=== PATIENT | male | born 1945 | race Caucasian/White ===

== ENCOUNTER 2019-01-27 14:11 | Outpatient (CLI) | payer MEDICARE, OTHER ==
[2019-01-27 14:47] LABS: eGFR (Non-African) > 60
== END 2019-01-27 14:20 ==
LOC: LAB 14:11
PROVIDERS: ATTEND Family Medicine
DX: I10 Essential (primary) hypertension (principal); E11.9 Type 2 diabetes mellitus without complications
CPT/HCPCS: 36415; 80053; 83036

== ENCOUNTER 2019-05-05 14:39 | Outpatient (CLI) | payer MEDICARE | END 2019-05-05 14:44 | LOC: LABRHC 14:39 | PROVIDERS: ATTEND Family Medicine | DX: E11.9 Type 2 diabetes mellitus without complications (principal) | CPT/HCPCS: 83036 ==